=== PATIENT | female | born 1965 | race African-American/Black ===

== ENCOUNTER 2019-09-21 17:26 | Emergency (ER) | payer OTHER ==
[~2019-09-21] VITALS: Ht 154.9 cm; Wt 65.8 kg
[~2019-09-21 17:26] MED LIST: CLONIDINE-TTS0.3 MG TOP; MAXZIDE-25 MG1 EACH PO; NORVASC10 MG PO
[2019-09-21 17:41] VITALS: BP 132/90
[2019-09-21] MEDS ORDERED: TIZANIDINE4 MG/1 TA1 PO (20:33)
== END 2019-09-21 20:45 | disposition home or self-care (01) ==
LOC: ER 17:26
DX: S46.012A Strain of muscle(s) and tendon(s) of the rotator cuff of left shoulder, initial encounter (principal); M25.551 Pain in right hip; M25.552 Pain in left hip; I10 Essential (primary) hypertension; V89.2XXA Person injured in unspecified motor-vehicle accident, traffic, initial encounter; Y92.89 Other specified places as the place of occurrence of the external cause; Y93.89 Activity, other specified; Y99.8 Other external cause status